=== PATIENT | male | born 1975 | race Two or more races ===

== ENCOUNTER 2025-03-03 05:46 | Day surgery (SDC) | payer OTHER, SELFPAY ==
[2025-03-03] VITALS (9 sets, daily range): BP systolic 110–144; BP diastolic 63–92; BMI 36.5
[2025-03-03] MEDS: TYLENOL 1000 MG PO (06:24)
[2025-03-03] MEDS: NORMOSOL-R/PLASMALYTE-A 1000 IV (06:34)
--- NOTE | 2025-03-03 06:54 | HP.FOC2 ---
Focused History & Physical
Chief Complaint
HPI:
Chief Complaint: Umbilical/ventral hernia
HPI / Indication for Planned Procedure: 49-year-old male recently seen in outpatient surgical evaluation secondary to longstanding history of visible palpable swelling in the upper abdominal wall just to the right of midline as well as a second area
at the umbilicus. Physical examination confirmed the presence of a primary ventral hernia and umbilical hernia both reducible. Patient presents today for scheduled operative correction.
Relevant Past Medical History: Negative
Relevant Social History: Negative
Relevant Family History: Negative
Relevant Past Surgical History: Positive for (Vasectomy, toe surgery, left clavicular fracture repair)
Review of Systems
Review of Pertinent Systems: All Systems Negative
Medication
See Medication form for detailed medications: Yes
Medication List (including Herbals & OTC):
No Meds [No Current Medications] 02/26/25
Medications Reviewed: Yes
Allergies and Reactions
Patient has Allergies: No
Noted Allergies and Reactions:
Allergy/AdvReac Type Severity Reaction Status Date / Time
No Known Allergies Allergy Unverified 03/03/25 06:15
Pertinent Physical Exam
All Other Systems: Negative
Head/Neck: Normal
Lungs: Normal
Heart: Normal
Abdomen: Normal and Other (Reducible ventral hernia, reducible umbilical hernia)
Extremities: Normal
Neurological: Normal
Diagnosis / Assessment
Patient is a 49-year-old male presenting for scheduled operative correction of his umbilical/ventral hernias
Plan / Procedure
Robotic assisted laparoscopic repair of umbilical/ventral hernias with mesh
Anesthesia/Sedation to be done by Anesthesia Provider: Yes
--- NOTE | 2025-03-03 06:57 | W.SUR.PREOP ---
Pre-Operative Surgical Note
-
I have examined this patient prior to the performance of the scheduled procedure.
The patient's condition is unchanged from the time of the current History and
Physical and the patient is able to undergo the scheduled procedure.
--- NOTE | 2025-03-03 09:27 | W.IMMPOSTOP ---
Addendum entered and electronically signed by Robert Fagan MD 03/03/25 09:44:
#[id number]
Original Note:
Surgical Immed Post Op Note
-
Primary Surgeon: Robert Fagan MD
Assisting Surgeon: Adeline Nuñez PA-c
Pre-op Diagnosis: Umbilical hernia and primary epigastric ventral hernia
Post-op Diagnosis: Incarcerated umbilical hernia; 2.5 cm
Incarcerated primary epigastric ventral hernia 2 cm
Procedure Performed: Robotic assisted laparoscopic ELVIS repair umbilical hernia with mesh; Bard soft 12 cm x 12 cm
Robotic assisted laparoscopic ELVIS repair epigastric ventral hernia with mesh; Bard soft 10 cm x 12 cm
Anesthesia Type: GETA +0.25% Marcaine with epi
Specimen / Cultures: None
Estimated Blood Loss: 6 mL
Complications: None immediate
Operative Findings:
Umbilical hernia containing incarcerated omentum. Contents reduced robotically and adhesions to hernia sac released. Fascial defect 2.5 cm. Fascial defect closed with 0 PDS STRATAFIX symmetric suture. Underlay preperitoneal mesh repair, BD soft
mesh 12 x 12 cm secured to posterior sheath and linea alba with 2-0 Vicryl stitches.
14 cm fascial bridge between umbilical hernia and epigastric hernia - -> therefore each hernia was repaired individually
Ventral hernia containing significant quantity of incarcerated preperitoneal fat/falciform ligament. Contents fully reduced robotically. Fascial defect 2 cm. Fascial defect closed with 0 PDS STRATAFIX symmetric suture. Underlay preperitoneal
mesh repair, BD soft mesh 10 cm x 12 cm secured to posterior sheath and linea alba with 2-0 Vicryl stitches.
Single large preperitoneal flap created for repair of both hernias. Closed with 2-0 Monocryl STRATAFIX spiral.
The assistance of Adeline Nuñez PA-C was required due to the complexity of the procedure. During the procedure Adeline Nuñez PA-C assisted with port placement, robotic instrumentation and suture material exchanges, and closure of the surgical incision
sites. I was present for the entirety of the operative procedure.
[2025-03-03] MEDS: ROXICODONE 5 MG PO (11:48)
== END 2025-03-03 11:55 | disposition home or self-care (01) ==
LOC: SDS 05:46
PROVIDERS: ATTENDING PHYSICIAN Surgery
DX: K43.6 Other and unspecified ventral hernia with obstruction, without gangrene (principal); K42.0 Umbilical hernia with obstruction, without gangrene
CPT/HCPCS: 49592; C1781